=== PATIENT | male | born 1940 | race Caucasian/White ===

== ENCOUNTER 2017-05-24 15:51 | Emergency (ER) | payer OTHER ==
[2017-05-24 16:25] VITALS: BP 158/90; PULSE 90; TEMP 98.3; BMI 28.1
== END 2017-05-24 18:48 | disposition left against medical advice (07) ==
LOC: JER 15:51
DX: Z53.21 Procedure and treatment not carried out due to patient leaving prior to being seen by health care provider (principal)
CPT/HCPCS: 99281-25

== ENCOUNTER 2019-01-20 15:01 | Emergency (ER) | payer OTHER ==
--- NOTE | 2019-01-20 15:12 | PDOC ---
Rapid Medical Evaluation Chief Complaint: Constipation Time Seen by Provider: 01/20/19 15:09 Medical Evaluation: Allergies Allergy/AdvReac Type Severity Reaction Status Date / Time No Known Allergies Allergy Verified 01/20/19 15:10 01/20/19 15:10 I have performed a brief in-person evaluation of this patient. The patient presents with a chief complaint of: Constipation not improved w/ meds. H/o rectal cancer dx 10/16 and scheduled to start XRT/chemo on Wednesday ( onc Dr Williamson). H/o former smoker, COPD, pAfib, not on blood thinners Pertinent physical exam findings:Stable I have ordered the following:labs/XR The patient will proceed to the ED for further evaluation. Discharge Disposition - Diagnosis Constipation Qualifiers: Constipation type: unspecified constipation type Qualified Code(s): K59.00 - Constipation, unspecified - Referrals - Patient Instructions - Post Discharge Activity
[2019-01-20 15:13] VITALS: BMI 25.0
[2019-01-20 15:49] LABS: BASO % 0.2 % (0-2.0); HEMATOCRIT 37.6 % (35.4-49); HEMOGLOBIN 13.3 GM/dL (11.7-16.9); LYMPH % 11.4 % (8-40); MCH 34.4 pg (25.7-33.7); MCHC 35.5 g/dl (32.0-35.9); MEAN CELL VOLUME 96.9 fl (80-96); MONO % 13.6 % (3.8-10.2); NEUT % 72.8 % (42.8-82.8); PLATELET COUNT 225 K/MM3 (134-434); RBC 3.87 M/mm3 (4.00-5.60); RDW 15.3 % (11.9-15.9); WHITE BLOOD COUNT 8.6 K/mm3 (4.0-10.0)
[2019-01-20 16:24] LABS: ALK PHOS 102 U/L (45-117); ANION GAP 8 MMOL/L (8-16); BILIRUBIN,TOTAL 1.4 mg/dL (0.2-1); BLOOD UREA NITROGEN 13 mg/dL (7-18); CALCIUM 8.9 mg/dL (8.5-10.1); CHLORIDE 99 mmol/L (98-107); CO2 24 mmol/L (21-32); GLUCOSE,RANDOM 107 mg/dL (74-106); SGOT/AST 37 U/L (15-37); SGPT/ALT 15 U/L (13-61); SODIUM 131 mmol/L (136-145); TOT PROT 6.4 g/dl (6.4-8.2)
--- NOTE | 2019-01-20 18:35 | PDOC ---
History of Present Illness - General Chief Complaint: Constipation Stated Complaint: ABD PAIN Time Seen by Provider: 01/20/19 15:09 - History of Present Illness Initial Comments: 78yo M with PMH of rectal carcinoma diagnosed in Sep 2018, COPD, paroxysmal Afib not on anticoagulant presenting with constipation. Patient states that he has had this problem for about a month. He has had some bowel movements, most recently in the ED but they have been very small in quantity and hard. Patient reports that he has taken Ducolax and Zenocot S without improvement in his symptoms. He endorses feeling abdominal discomfort. Patient is scheduled for radiation/chemotherapy on Wednesday with Dr. Williamson (onc) and Dr. Perez (rad/onc) . Family member at the bedside reports that Dr. Perez is concerned about the constipation because the procedure on Wednesday will cause the tumor to swell. Denies other complaints. No fevers, chills, chest pain, or shortness of breath. Past History - Past Medical History Allergies/Adverse Reactions: Allergies Allergy/AdvReac Type Severity Reaction Status Date / Time No Known Allergies Allergy Verified 01/20/19 15:10 Home Medications: Ambulatory Orders Tiotropium Br/Olodaterol HCl [Stiolto Respimat Inhal [place]] 2.5 mcg IH DAILY Cancer: Yes (rectal) Cardiac Disorders: Yes (afib) COPD: Yes HTN: Yes - Surgical History GI Surgery: Yes - Suicide/Smoking/Psychosocial Hx Smoking History: Former smoker Have you smoked in the past 12 months: No If you are a former smoker, when did you quit?: 28 years ago Information on smoking cessation initiated: No Hx Alcohol Use: No Drug/Substance Use Hx: No Substance Use Type: None Review of Systems - Review of Systems Comments:: Constitutional: no fever, no chills HEENT: no throat pain, no dysphagia Cardiovascular: no chest pain, no palpitations Respiratory: no cough, no shortness of breath Gastrointestinal: +abdominal pain, no nausea Genitourinary: no dysuria, no frequency Musculoskeletal: no myalgia, no arthralgia Skin: no rash, no itching Neurologic: no headache, no dizziness *Physical Exam - Vital Signs Last Vital Signs Temp Pulse Resp BP Pulse Ox 98.6 F 102 H 18 123/79 96 01/20/19 15:10 01/20/19 15:10 01/20/19 15:10 01/20/19 15:10 01/20/19 15:10 - Physical Exam Comments: General: Awake, alert, and fully oriented, in no acute distress Head: No signs of trauma Eyes: EOMI, sclera anicteric ENT: Dry mucus membranes Neck: Normal ROM, supple Lungs: Lungs clear, Normal breath sounds Cardio: Regular rhythm, S1 and S2 present Abdomen: Soft, nontender. No guarding, no rebound, no masses Extremities: Normal range of motion, Distal pulses present SKIN: Warm, Dry, normal turgor Neurologic: Cranial nerves II through XII grossly intact. Normal speech Moderate Sedation - Procedure Monitoring Vital Signs: Procedure Monitoring Vital Signs Temperature 98.6 F 01/20/19 15:10 Pulse Rate 102 H 01/20/19 15:10 Respiratory Rate 18 01/20/19 15:10 Blood Pressure 123/79 01/20/19 15:10 O2 Sat by Pulse Oximetry (%) 96 01/20/19 15:10 ED Treatment Course - LABORATORY CBC & Chemistry Diagram: 01/20/19 15:32 01/20/19 15:32 - ADDITIONAL ORDERS Additional order review: Laboratory Results 01/20/19 15:32 Sodium 131 L Potassium 4.0 Chloride 99 Carbon Dioxide 24 Anion Gap 8 BUN 13 Creatinine 1.0 Creat Clearance w eGFR > 60 Random Glucose 107 H Calcium 8.9 Total Bilirubin 1.4 H AST 37 ALT 15 Alkaline Phosphatase 102 Total Protein 6.4 Albumin 3.0 L 01/20/19 15:32 RBC 3.87 L MCV 96.9 H MCHC 35.5 RDW 15.3 D MPV 9.0 Neutrophils % 72.8 Lymphocytes % 11.4 D Monocytes % 13.6 H D Eosinophils % 2.0 Basophils % 0.2 Medical Decision Making - Medical Decision Making 78yo M with PMH of rectal carcinoma diagnosed in Sep 2018, COPD, paroxysmal Afib not on anticoagulant presenting with constipation. Patient with labs WNL Slightly hyponatremic at 131 Abdominal Xray with retained stool but without fecal impaction or obstruction Tachycardic 102 1L NS ordered Lactulose given Glycerin suppository given Patient did have a small liquid bowel movement while in the ED Patient instructed to increase fluid hydration and eat more fruits and vegetables Presentation consistent with constipation. Patient will follow-up with his provider on Wednesday for his rectal carcinoma chemo/radiation. Discharged *DC/Admit/Observation/Transfer Diagnosis at time of Disposition: Constipation Qualifiers: Constipation type: unspecified constipation type Qualified Code(s): K59.00 - Constipation, unspecified - Discharge Dispostion Disposition: HOME Condition at time of disposition: Stable - Referrals Referrals: Sanford Maza MD [Primary Care Provider] - - Patient Instructions Printed Discharge Instructions: DI for Constipation Additional Instructions: You came into the ED for constipation. Our workup did not indicate acute pathology. We gave you a suppository while you were in the ED. Drink prune juice and eat lots of fruits and vegetables. Continue your constipation medicine at home as needed. Present for your treatment at your already scheduled appointment on Wednesday. Immediate medical attention is required if you have: you experience any lightheadedness, dizziness, chest pain, shortness of breath, persistent black tarry stools, bright red blood per rectum, blood in your vomit, any severe abdominal pain, or any other new or concerning symptoms. If you think you are having an emergency, call for emergency medical services or present to the emergency department right away. - Post Discharge Activity
[2019-01-20] MEDS ORDERED: SODIUM CHLORIDE 1,000 ML IV STA (19:54)
[2019-01-20] MEDS ORDERED: POLYETHYLENE GLYCOL 3350 119 GM BTL PO ONE (20:02)
[2019-01-20] MEDS ORDERED: LACTULOSE 20 GM/30 ML UDC (FOR ORAL USE ONLY) PO ONE (20:03)
[2019-01-20] MEDS ORDERED: GLYCERIN 1 RECTAL SUPPOSITORY, ADULT PR ONE (20:06)
[2019-01-20] MEDS ORDERED: LACTULOSE 20 GM/30 ML UDC (FOR ORAL USE ONLY) ONE (20:19)
--- NOTE | 2019-01-20 20:43 | PDOC ---
Attending Attestation - HPI HPI: 01/20/19 20:43 The patient is an 78 year old male, with a significant PMH of rectal cancer (2017), COPD, Afib, who presents to the emergency department complaining of 1 month of constipation. Patient states that he had a minor bowel movement while in the ED, but it was a very hard and a small amount. He notes some abdominal discomfort and feels very full. Patient denies any other complaints. The patient denies chest pain, shortness of breath, headache and dizziness. Denies fever, chills, nausea, vomit, diarrhea and constipation. Denies dysuria, frequency, urgency and hematuria. Allergies: NKA Social history: No reported PCP: Dr. Maza - Physicial Exam PE: 01/20/19 21:45 GENERAL: Afibrile. Awake, alert, and fully oriented, in no acute distress HEAD: No signs of trauma EYES: PERRLA, EOMI, sclera anicteric, conjunctiva clear NECK: Normal ROM, supple, no lymphadenopathy, JVD, or masses LUNGS: Breath sounds equal, clear to auscultation bilaterally. No wheezes, and no crackles HEART: Regular rate and rhythm, normal S1 and S2, no murmurs, rubs or gallops ABDOMEN: Soft, nontender, normoactive bowel sounds. No guarding, no rebound. No masses EXTREMITIES: Normal range of motion, no edema. No clubbing or cyanosis. No cords, erythema, or tenderness NEUROLOGICAL: Cranial nerves II through XII grossly intact. Normal speech, normal gait SKIN: Warm, Dry, normal turgor, no rashes or lesions noted. <Minal Ring - Last Filed: 01/20/19 21:44> - Resident Resident Name: Odalis Leroy - ED Attending Attestation I have performed the following: I have examined & evaluated the patient, The case was reviewed & discussed with the resident, I agree w/resident's findings & plan - Medical Decision Making 01/21/19 05:16 Pt is feeling better after hydration. He has laxatives at home, however he is aware that he needs to eat fruits and veggies and have more water in his diet. He is stable to go home with his daughter <[email or web address] [email or web address] - Last Filed: 01/21/19 05:17> Attestations - Attestations 01/20/19 20:44 Documentation prepared by Minal Ring, acting as adjunct faculty for medical terminology for Chary Holley MD. <Minal Ring - Last Filed: 01/20/19 21:44>
[2019-01-20 21:39] VITALS: BP 122/78; PULSE 86; TEMP 98.5
== END 2019-01-20 21:39 | disposition home or self-care (01) ==
LOC: JER 15:01
PROC: 3E0337Z Introduction of Electrolytic and Water Balance Substance into Peripheral Vein, Percutaneous Approach (ICD-10-PCS; principal; 2019-01-20)
DX: K59.00 Constipation, unspecified (principal); C20 Malignant neoplasm of rectum; J44.9 Chronic obstructive pulmonary disease, unspecified; I48.91 Unspecified atrial fibrillation
CPT/HCPCS: 36415; 74018-TC-FY; 80053; 85025; 96360; 99282-25; J7030